=== PATIENT | female | born 1945 | race Caucasian/White ===

== ENCOUNTER → 2017-03-11 | Outpatient (CLI) | payer MEDICARE, OTHER ==
[~2017-03-11] MED LIST: ALPR-1 PO; ALPR-459 PO; AMOX-559 PO; CEPH-13 PO; CYCL10TA29 PO; ESCI10TA8 PO; FLU150 PO; KET10 PO; MELO-205 PO; MELO-207 PO; MET60GMPT VA; OMEP-125 PO; OMEP40CA48 PO; PEG4000S14 PO; PNEI IJ; PNEU0.5D3 IM; RANI-320 PO; SERT-181 PO; SERT-184 PO; SERT25TA90 PO
== END ==
LOC: LAB 13:14
PROVIDERS: ATTEND Nurse Practitioner Primary Care
DX: L29.8 Other pruritus (principal)
CPT/HCPCS: 87210

== ENCOUNTER → 2017-03-31 | Outpatient (CLI) | payer MEDICARE, OTHER | LOC: LAB 09:56 | PROVIDERS: ATTEND Nurse Practitioner Primary Care | DX: L29.8 Other pruritus (principal) | CPT/HCPCS: 87210 ==

== ENCOUNTER → 2017-05-04 | Outpatient (CLI) | payer MEDICARE, OTHER ==
--- NOTE | 2017-05-04 15:35 | RADIOLOGY IMAGING REPORT ---
FACILITY: [facility] PATIENT NAME: DEBI ANTOINE : [id number] MR: [id number] V: [id number] EXAM DATE: [id number] ORDERING PHYSICIAN: CHEVY JEONG TECHNOLOGIST: Antonella Hutchinson PROCEDURE:BILATERAL DIGITAL SCREENING MAMMOGRAM WITH CAD ASSISTED INTERPRETATION & 3D TOMOSYNTHESIS COMPARISON:Prior mammograms INDICATIONS:SCREENING FINDINGS: Scattered fibroglandular densities are present in both breasts. Benign appearing asymmetries are scattered bilaterally, accentually unchanged. DIAGNOSTIC CATEGORY 1--NEGATIVE. RECOMMENDATIONS: ROUTINE MAMMOGRAM AND CLINICAL EVALUATION. IMPRESSION: BIRADS 1: Negative RECOMMENDATIONS: Bilateral screening mammography in 1 year. Dictated by: Thomas Martinez M.D. on 05/04/2017 at 13:06 Transcribed by: KAT on 05/04/2017 at 13:16 Approved by: Thomas Martinez M.D. on 05/04/2017 at 15:34 [facility]
== END ==
LOC: MAMO 04:19
PROVIDERS: ATTEND Internal Medicine
DX: Z12.31 Encounter for screening mammogram for malignant neoplasm of breast (principal)
CPT/HCPCS: 77063; 77067

== ENCOUNTER → 2017-06-08 | Outpatient (CLI) | payer MEDICARE, OTHER ==
[2017-06-08 08:15] LABS: PLATELET COUNT, AUTOMATED 241 K/uL (150-450)
== END ==
LOC: LAB 07:56
PROVIDERS: ATTEND Internal Medicine
DX: I49.3 Ventricular premature depolarization (principal); E78.5 Hyperlipidemia, unspecified; F41.9 Anxiety disorder, unspecified
CPT/HCPCS: 36415; 81001; 82040; 82247; 82310; 82374; 82435; 82465; 82565; 82947; 83718; 84075; 84132; 84155; 84295; 84443; 84450; 84460; 84478; 84520; 85025

== ENCOUNTER → 2017-06-15 | Outpatient (CLI) | payer MEDICARE, OTHER ==
[~2017-06-15] MED LIST changes: +ATOR10TA65 PO
--- NOTE | 2017-06-16 12:07 | RT HOLTER TEST ---
FACILITY: [facility] PATIENT NAME: DEBI ANTOINE : [id number] MR: [id number] V: [id number] EXAM DATE: ORDERING PHYSICIAN: CHEVY JEONG TECHNOLOGIST: CESAR [place]-up date: 2017-06-15 10:13:00 Duration: 23:48:00 Test Indications: PALPITATIONS Medications: [id number] QRS complexes 856 Ventricular ectopics which represent <1 % of total QRS comp. * Supraventricular ectopics which represent % of total QRS comp. * Paced QRS complexes which represent % of total QRS comp. VENTRICULAR ECTOPY 758 Isolated 0 Bigeminal Cycles 45 Couplets 2 Runs 8 Beats in Runs 5 Beats LONGEST at 151 BPM at 16:19:09 2017-06-15 5 Beats FASTEST at 151 BPM at 16:19:09 2017-06-15 SUPRAVENTRICULAR ECTOPY * Isolated * Couplets * Runs * Beats in Runs * Beats LONGEST at * BPM at :: -- * Beats FASTEST at * BPM at :: -- HEART RATES 65 MIN at 02:45:59 2017-06-16 83 AVG 123 MAX at 16:19:09 2017-06-15 LONGEST RR 1.264 secs at 02:45:55 2017-06-16 S-T LEVELS Channel 1 -12.800 mm MIN at 10:13:00 2017-06-15 -12.800 mm MAX at 10:13:00 2017-06-15 Channel 2 -12.800 mm MIN at 10:13:00 2017-06-15 -12.800 mm MAX at 10:13:00 2017-06-15 Channel 3 -12.800 mm MIN at 10:13:00 2017-06-15 -12.800 mm MAX at 10:13:00 2017-06-15 Frequent Premature ventricular complexes Short run of V-tachycardia and couplets Confirmed by JOHN WEBER ([id number]) on 06/16/2017 12:07:04 PM Referred By: Overread By: JOHN WEBER
== END ==
LOC: RESP 03:53
PROVIDERS: ATTEND Internal Medicine
DX: I49.3 Ventricular premature depolarization (principal)
CPT/HCPCS: 93225

== ENCOUNTER → 2017-06-16 | Outpatient (CLI) | payer MEDICARE, OTHER ==
--- NOTE | 2017-06-16 11:12 | RADIOLOGY IMAGING REPORT ---
FACILITY: [facility] PATIENT NAME: Liliane Mercado : 1945 MR: [id number] V: [id number] EXAM DATE: ORDERING PHYSICIAN: CHEVY JEONG TECHNOLOGIST: Location: [facility] Patient: Liliane Mercado : 1945 Visit/Account:[id number] Date of Sevice: 06/16/2017 DEXA Scan Clinical history: Postmenopausal. Comparison: DEXA scan from 11/21/2011. LUMBAR SPINE: The bone mineral density (BMD) measured from L1-L4 correlates with a Z-score of 1.8 and a T-score of 0.1 which is Normal as defined by the World Health Organization. The corresponding risk of fracture in the lumbar spine is Not increased compared with a young adult reference population. This value short s increase by 11.6 % since the prior study. More than 5% change is considered significant. HIP: Bone mineral density (BMD) measured in the LEFT total hip region correlates with a Z-score 0.9 and a T-score of -0.6 which is normal as defined by the World Health Organization. The corresponding risk of fracture in the hip is 1-2 t imes increased compared to a young adult reference population. This value has decrease by 0.2 % since the prior study. More than 5% change is considered significant. T score left femoral neck -0.8 Bone mineral density (BMD) measured in the Femoral Neck region measures 0.926 g/cm?. IMPRESSION: 1. Lumbar spine: Normal. There has been 11.6% increase in the bone mineral density since the previo us exam. 2. Left Total Hip: Normal. There has been 0.2% decrease in the bone mineral density since the previ ous exam. 3. Femoral Neck: Bone Mineral Density is 0.926 g/cm? The next DEXA scan of this patient should include the following sites: L1-L4 and the left hip. FRAX? WHO Fracture Risk Assessment Tool link: <http://www.shef.ac.uk/FRAX/tool.jsp?locationValue=9> PLEASE NOTE: 1) The World Health Organization defines low BMD as follows: T-score Normal > -1 Osteopenia < -1 and > -2.5 Osteoporosis < -2.5 without fractures Established osteoporosis < -2.5 with fractures 2) In general, you may wish to consider: Diagnosis Treatment Follow-up DEXA Normal BMD Prevention 2-3 years Osteopenia Prevention/therapy 1-2 years Osteoporosis Therapy Yearly 3) Fracture risk estimated from the T-score is more accurate for vertebral fractures (often spontane ous) than for hip fractures. Report Dictated By: Marylou Wright MD at 06/16/2017 11:07 AM Report E-Signed By: Marylou Wright MD at 06/16/2017 11:08 AM WSN:[email or web address]
== END ==
LOC: RAD 02:00
PROVIDERS: ATTEND Internal Medicine
DX: Z13.820 Encounter for screening for osteoporosis (principal); Z78.0 Asymptomatic menopausal state
CPT/HCPCS: 77080

== ENCOUNTER → 2017-07-08 | Outpatient (CLI) | payer MEDICARE, OTHER ==
[~2017-07-08] MED LIST changes: +METO25TA23 PO
--- NOTE | 2017-07-08 17:36 | RADIOLOGY IMAGING REPORT ---
FACILITY: [facility] PATIENT NAME: Liliane Mercado : 1945 MR: [id number] V: [id number] EXAM DATE: ORDERING PHYSICIAN: CHEVY JEONG TECHNOLOGIST: [facility] Patient: Liliane Mercado : 1945 Visit/Account:[id number] Date of Sevice: 07/08/2017 EXAMINATION: Single Isotope SPECT Imaging with Exercise and Gated SPECT Imaging DATE OF EXAMINATION: 07/08/2017 DATE OF INTERPRETATION: 07/08/2017 REQUESTING PHYSICIAN: CHEVY JEONG INDICATION: The patient is a 72-year-old female evaluated for PVCs. PROCEDURE: After informed consent the patient received an intravenous injection of 12.3 mCi of Tc-9 9m sestamibi followed at the appropriate time interval by rest imaging. The patient then exercised a ccording to the standard Jay protocol for 5:59 minutes achieving 6 METS. Resting heart rate was 73 bpm with a peak heart rate of 142 bpm which is 94 % of maximal predicted heart rate for age. Blood pressure at rest was 166 / 88; blood pressure during exercise was 178 / 73. There was no chest pain during exercise. Exercise was discontinued because of fatigue. Baseline EKG demonstrates normal si nus rhythm, no ST or T-wave abnormalities. There were no EKG changes of ischemia at peak exercise. Approximately one minute and 30 seconds prior to the termination of exercise, the patient received an intravenous injection of 29.9 mCi of Tc-99m sestamibi followed by stress imaging. RAW DATA: Examination of the summed raw data revealed a good quality study. MYOCARDIAL PERFUSION: The tomographic images demonstrate no evidence of infarct or ischemia. GATED IMAGES: The gated images demonstrate normal wall motion, hyperdynamic ejection fraction estima karthikeyan at 92% IMPRESSION: 1. Good quality study 2. Normal myocardial perfusion scan. 3. Hyperdynamic LV systolic function; LVEF 92%. 4. Based on the results of this exam, the patient appears to be at low risk for future cardiovascular events. Report Dictated By: Leonardo Winchester at 07/08/2017 5:27 PM Report E-Signed By: Leonardo Winchester at 07/08/2017 5:32 PM WSN:[id number]
== END ==
LOC: NUC 01:02
PROVIDERS: ATTEND Internal Medicine
DX: I49.3 Ventricular premature depolarization (principal)
CPT/HCPCS: 78452; 93017; A9500

== ENCOUNTER → 2018-06-03 | Outpatient (CLI) | payer MEDICARE, OTHER ==
[~2018-06-03] MED LIST changes: +ROSU5TAB8 PO
--- NOTE | 2018-06-04 11:25 | RADIOLOGY IMAGING REPORT ---
FACILITY: [facility] PATIENT NAME: DEBI ANTOINE : [id number] MR: [id number] V: [id number] EXAM DATE: [id number] ORDERING PHYSICIAN: CHEVY JEONG TECHNOLOGIST: Antonella Hutchinson PROCEDURE:BILATERAL DIGITAL SCREENING MAMMOGRAM WITH CAD ASSISTED INTERPRETATION & 3D TOMOSYNTHESIS COMPARISON:Prior mammograms dated 05/04/17, 05/01/16, 05/01/15, 04/18/14, 03/29/13, 03/24/12 INDICATIONS:SCREENING FINDINGS: There are scattered areas of fibroglandular density throughout the breasts. The parenchymal pattern has remained stable when allowing for difference in mammographic technique & patient positioning. DIAGNOSTIC CATEGORY 1--NEGATIVE. RECOMMENDATIONS: ROUTINE MAMMOGRAM AND CLINICAL EVALUATION. IMPRESSION: BIRADS 1: Negative. No significant abnormality is seen. Dictated by: Marylou Wright M.D. on 06/03/2018 at 15:04 Transcribed by: LAUREN on 06/04/2018 at 9:27 Approved by: Marylou Wright M.D. on 06/04/2018 at 11:24 [facility]
== END ==
LOC: MAMO 00:48
PROVIDERS: ATTEND Internal Medicine
DX: Z12.31 Encounter for screening mammogram for malignant neoplasm of breast (principal); Z80.3 Family history of malignant neoplasm of breast
CPT/HCPCS: 77063; 77067

== ENCOUNTER → 2018-06-23 | Outpatient (CLI) | payer MEDICARE, OTHER ==
[2018-06-23 06:55] LABS: PLATELET COUNT, AUTOMATED 269 K/uL (150-450)
== END ==
LOC: LAB 06:39
PROVIDERS: ATTEND Internal Medicine
DX: Z00.00 Encounter for general adult medical examination without abnormal findings (principal); E78.5 Hyperlipidemia, unspecified; I49.3 Ventricular premature depolarization; F41.9 Anxiety disorder, unspecified
CPT/HCPCS: 36415; 81001; 82040; 82247; 82310; 82374; 82435; 82465; 82565; 82947; 83718; 84075; 84132; 84155; 84295; 84443; 84450; 84460; 84478; 84520; 85025

== ENCOUNTER → 2018-07-26 | Outpatient (CLI) | payer MEDICARE, OTHER ==
[~2018-07-26] MED LIST changes: -OMEP-125 PO; +OMEP-126 PO
--- NOTE | 2018-07-26 16:00 | RADIOLOGY IMAGING REPORT ---
FACILITY: [facility] PATIENT NAME: Liliane Mercado : 1945 MR: [id number] V: [id number] EXAM DATE: ORDERING PHYSICIAN: CHEVY JEONG TECHNOLOGIST: Location: [facility] [place] Patient: Liliane Mercado : 1945 Visit/Account:[id number] Date of Sevice: 07/26/2018 Technique: FINGER RIGHT THUMB HISTORY: thumb pain Comparison studies: None FINDINGS: No acute fracture. The alignment of the right first digit is preserved. Soft tissues are unremarkable. IMPRESSION: 1. No acute osseous process. Report Dictated By: Adonay Britt DO at 07/26/2018 3:50 PM Report E-Signed By: Adonay Britt DO at 07/26/2018 3:53 PM WSN:[id number]
== END ==
LOC: RAD 15:28
PROVIDERS: ATTEND Internal Medicine
DX: M18.10 Unilateral primary osteoarthritis of first carpometacarpal joint, unspecified hand (principal)